=== PATIENT | male | born 1995 ===

== ENCOUNTER 2018-08-19 07:35 | Emergency (ER) | payer SELFPAY ==
[2018-08-19 08:26] LABS: Absolute Lymphocytes (CBC) 1.3 K/uL (0.7-4.9); Absolute Monocytes 0.5 K/uL (0.1-1.3); Absolute Neutrophil 7.9 K/uL (1.8-8.0); Basophils % 0.3 % (0-1.3); Eosinophils % 0.3 % (0-4.4); Hematocrit 45.3 % (39.6-49.0); Lymphocytes % 13.2 % (15.3-44.8); MCH 31.3 pg (27.0-35.0); MCV 87.7 fL (80-100); MPV 8.2 fL (7.6-11.3); Monocytes % 4.9 % (3.3-12.3); RBC Red Blood Cell Count 5.16 M/uL (4.33-5.43)
[2018-08-19 08:34] LABS: BUN Blood Urea Nitrogen 7 mg/dL (7-18); Bicarbonate 25 mmol/L (21-32); Glucose Level 100 mg/dL (74-106); Potassium 3.7 mmol/L (3.5-5.1); Sodium Level 144 mmol/L (136-145)
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
--- NOTE | 2018-08-19 09:38 | RAD REPORT ---
EXAM DESCRIPTION: RAD - Knee Left 2 View - 08/19/2018 8:41 am CLINICAL HISTORY: Left knee pain FINDINGS: No fracture or dislocation
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
--- NOTE | 2018-08-19 10:23 | RAD REPORT ---
EXAM DESCRIPTION: RAD - Knee Right 2 View - 08/19/2018 8:41 am CLINICAL HISTORY: Right knee pain FINDINGS: There is an equivocal lipohemarthrosis. 16 millimeter bony density which lies adjacent to the anterior proximal tibia probably is chronic as no soft tissue swelling is seen. No acute fracture or dislocation is noted. There is an equivocal lipohemarthrosis. If the patient has clinical symptoms to suggest an occult fracture CT would be recommended
== END 2018-08-19 10:32 | disposition home or self-care (01) ==
LOC: ER 07:35 → EDBD 07:35 → ER 10:32
DX: S39.012A Strain of muscle, fascia and tendon of lower back, initial encounter (principal); S80.02XA Contusion of left knee, initial encounter; S80.01XA Contusion of right knee, initial encounter; V49.50XA Passenger injured in collision with unspecified motor vehicles in traffic accident, initial encounter
CPT/HCPCS: 36415; 70450; 71260; 72125; 74177; 80048; 80320; 85025; 86850; 86900; 86901; 99285; Q9967